=== PATIENT | male | born 1980 | race Caucasian/White ===

== ENCOUNTER 2018-02-13 14:23 | Emergency (ER) | payer OTHER, MEDICAID ==
--- NOTE | 2018-02-13 14:30 | ER Report ---
History and Physical Time Seen By MD: 14:29 HPI/ROS CHIEF COMPLAINT: Back pain, right hip pain HISTORY OF PRESENT ILLNESS: 37-year-old male patient presents to the emergency room via private vehicle. Patient states that he has been having back pain, neck pain and right hip pain since yesterday. Patient states that he was working at [employer] and was cleaning out the gutters when he missed a step and fell from a ladder. He states that he fell proximally 7 feet. Patient states since then he's been having significant amounts of back pain. He denies having any loss of bowel or bladder control. Patient states that he is felt like he's had a bowel movement, however he is going to the bathroom without any difficulties. Patient states the pain is just, unbearable. Patient states that the pain is right in the middle lower part of his back, as well as the right side of his neck. Patient states he feels like the pain radiates down his right leg. He has taken Tylenol and ibuprofen for this with no improvement. Patient denies having any neurological difficulties with the lower extremities. REVIEW OF SYSTEMS: Respiratory: No cough, no dyspnea. Cardiovascular: No chest pain, no palpitations. Gastrointestinal: No vomiting, no abdominal pain. Musculoskeletal: As noted above Allergies: Coded Allergies: Penicillins (Verified Allergy, Unknown, 02/13/18) Home Meds Active Scripts Hydrocodone Bit/Acetaminophen (HYDROCODON-ACETAMINOPHEN 5-325) 1 Each Tablet, 1 EACH PO Q4-6H Y for PAIN, #12 TAB Prov:JELENA SZYMANSKI LEO 02/13/18 Past Medical/Surgical History Patient has a past medical history of kidney stones, left foot fracture. Patient has surgical history of left foot surgery. Reviewed Nurses Notes: Yes Constitutional Vital Sign - Last 24 Hours 02/13/18 02/13/18 02/13/18 02/13/18 14:31 15:00 15:30 15:56 Temp 98.3 Pulse 78 87 94 Resp 24 16 18 24 B/P (MAP) 106/92 122/79 (93) 120/87 (98) 106/92 Pulse Ox 95 95 93 95 O2 Delivery Room Air Room Air Room Air 02/13/18 16:00 Temp 98.0 Pulse 88 Resp 16 B/P (MAP) 130/88 (102) Pulse Ox 96 Physical Exam General Appearance: The patient is alert, has no immediate need for airway protection and no current signs of toxicity. ENT: Tympanic membranes are pearly-scott, auditory canals are patent, mucous membranes are moist. Respiratory: Chest is non tender, lungs are clear to auscultation. Cardiac: regular rate and rhythm Gastrointestinal: Abdomen is soft and non tender, no masses, bowel sounds normal. Musculoskeletal: Neck: Neck is supple and non tender. Back: Patient has tenderness to the lumbar spine, no bruising. Extremities have full range of motion and are non tender. Skin: No rashes or lesions. DIFFERENTIAL DIAGNOSIS: After history and physical exam differential diagnosis was considered for fracture, contusion, strain. Medical Decision Making Data Points Result Diagram: 02/13/18 1440 02/13/18 1440 Laboratory Hematology Test 02/13/18 14:40 02/13/18 15:15 Red Blood Count 6.08 M/uL (4.00-5.60) Mean Corpuscular Volume 89.9 fL (80.0-96.0) Mean Corpuscular Hemoglobin 31.1 pg (26.0-33.0) Mean Corpuscular Hemoglobin Concent 34.6 g/dL (32.0-36.0) Red Cell Distribution Width 13.4 % (11.5-14.5) Mean Platelet Volume 6.4 fL (7.2-11.1) Neutrophils (%) (Auto) 76.4 % (39.4-72.5) Lymphocytes (%) (Auto) 17.1 % (17.6-49.6) Monocytes (%) (Auto) 5.4 % (4.1-12.4) Eosinophils (%) (Auto) 0.8 % (0.4-6.7) Basophils (%) (Auto) 0.3 % (0.3-1.4) Nucleated RBC Relative Count (auto) 0.0 /100WBC Neutrophils # (Auto) 7.5 K/uL (2.0-7.4) Lymphocytes # (Auto) 1.7 K/uL (1.3-3.6) Monocytes # (Auto) 0.5 K/uL (0.3-1.0) Eosinophils # (Auto) 0.1 K/uL (0.0-0.5) Basophils # (Auto) 0.0 K/uL (0.0-0.1) Nucleated RBC Absolute Count (auto) 0.00 K/uL Sodium Level 142 mmol/L (137-145) Potassium Level 3.9 mmol/L (3.5-5.0) Chloride Level 104 mmol/L (98-107) Carbon Dioxide Level 23 mmol/L (22-30) Blood Urea Nitrogen 7 mg/dl (9-21) Creatinine 0.80 mg/dl (0.66-1.25) Glomerular Filtration Rate Calc > 60.0 Random Glucose 122 mg/dl (75-110) Calcium Level 9.9 mg/dl (8.4-10.2) Total Bilirubin 1.8 mg/dl (0.2-1.3) Aspartate Amino Transf (AST/SGOT) 31 U/L (0-35) Alanine Aminotransferase (ALT/SGPT) 28 U/L (0-56) Alkaline Phosphatase 63 U/L (0-126) Total Protein 7.9 gm/dl (6.3-8.2) Albumin 4.7 g/dl (3.5-5.0) Urine Color Yellow Urine Clarity Clear Urine pH 7.0 pH (4.8-9.5) Urine Specific Fork 1.005 Urine Protein Negative mg/dL (NEGATIVE) Urine Glucose (UA) Negative mg/dL (NEGATIVE) Urine Ketones Negative mg/dL (NEGATIVE) Urine Blood Negative (NEGATIVE) Urine Nitrite Negative (NEGATIVE) Urine Bilirubin Negative (NEGATIVE) Urine Urobilinogen Negative mg/dL (0.2-1.9) Urine Leukocyte Esterase Negative (NEGATIVE) Urine RBC <1 /HPF (0-2/HPF) Urine WBC None /HPF (0-5/HPF) Urine Squamous Epithelial Cells None /LPF (</=FEW) Urine Bacteria Few /HPF (NONE-FEW) Urine Mucus None /HPF (NONE-FEW) Chemistry Test 02/13/18 14:40 02/13/18 15:15 White Blood Count 9.9 k/uL (4.5-11.0) Red Blood Count 6.08 M/uL (4.00-5.60) Hemoglobin 18.9 g/dL (14.0-18.0) Hematocrit 54.6 % (42.0-52.0) Mean Corpuscular Volume 89.9 fL (80.0-96.0) Mean Corpuscular Hemoglobin 31.1 pg (26.0-33.0) Mean Corpuscular Hemoglobin Concent 34.6 g/dL (32.0-36.0) Red Cell Distribution Width 13.4 % (11.5-14.5) Platelet Count 328 K/uL (150-450) Mean Platelet Volume 6.4 fL (7.2-11.1) Neutrophils (%) (Auto) 76.4 % (39.4-72.5) Lymphocytes (%) (Auto) 17.1 % (17.6-49.6) Monocytes (%) (Auto) 5.4 % (4.1-12.4) Eosinophils (%) (Auto) 0.8 % (0.4-6.7) Basophils (%) (Auto) 0.3 % (0.3-1.4) Nucleated RBC Relative Count (auto) 0.0 /100WBC Neutrophils # (Auto) 7.5 K/uL (2.0-7.4) Lymphocytes # (Auto) 1.7 K/uL (1.3-3.6) Monocytes # (Auto) 0.5 K/uL (0.3-1.0) Eosinophils # (Auto) 0.1 K/uL (0.0-0.5) Basophils # (Auto) 0.0 K/uL (0.0-0.1) Nucleated RBC Absolute Count (auto) 0.00 K/uL Glomerular Filtration Rate Calc > 60.0 Calcium Level 9.9 mg/dl (8.4-10.2) Total Bilirubin 1.8 mg/dl (0.2-1.3) Aspartate Amino Transf (AST/SGOT) 31 U/L (0-35) Alanine Aminotransferase (ALT/SGPT) 28 U/L (0-56) Alkaline Phosphatase 63 U/L (0-126) Total Protein 7.9 gm/dl (6.3-8.2) Albumin 4.7 g/dl (3.5-5.0) Urine Color Yellow Urine Clarity Clear Urine pH 7.0 pH (4.8-9.5) Urine Specific Fork 1.005 Urine Protein Negative mg/dL (NEGATIVE) Urine Glucose (UA) Negative mg/dL (NEGATIVE) Urine Ketones Negative mg/dL (NEGATIVE) Urine Blood Negative (NEGATIVE) Urine Nitrite Negative (NEGATIVE) Urine Bilirubin Negative (NEGATIVE) Urine Urobilinogen Negative mg/dL (0.2-1.9) Urine Leukocyte Esterase Negative (NEGATIVE) Urine RBC <1 /HPF (0-2/HPF) Urine WBC None /HPF (0-5/HPF) Urine Squamous Epithelial Cells None /LPF (</=FEW) Urine Bacteria Few /HPF (NONE-FEW) Urine Mucus None /HPF (NONE-FEW) Urinalysis Test 02/13/18 15:15 Urine Color Yellow Urine Clarity Clear Urine pH 7.0 pH (4.8-9.5) Urine Specific Fork 1.005 Urine Protein Negative mg/dL (NEGATIVE) Urine Glucose (UA) Negative mg/dL (NEGATIVE) Urine Ketones Negative mg/dL (NEGATIVE) Urine Blood Negative (NEGATIVE) Urine Nitrite Negative (NEGATIVE) Urine Bilirubin Negative (NEGATIVE) Urine Urobilinogen Negative mg/dL (0.2-1.9) Urine Leukocyte Esterase Negative (NEGATIVE) Urine RBC <1 /HPF (0-2/HPF) Urine WBC None /HPF (0-5/HPF) Urine Squamous Epithelial Cells None /LPF (</=FEW) Urine Bacteria Few /HPF (NONE-FEW) Urine Mucus None /HPF (NONE-FEW) EKG/Imaging Imaging C-SPINE W/O CONTRAST History: fall from ladder COMPARISON STUDIES: none TECHNIQUE: Contiguous axial images were obtained from the skull base through the upper thoracic spine without IV contrast administration. Coronal and sagittal reformatted images were obtained from the axial source data. One of the following dose optimization techniques was utilized in the performance of this exam: Automated exposure control; adjustment of the mA and/or kV according to the patient's size; or use of an iterative reconstruction technique. Specific details can be referenced in the facility's radiology CT exam operational policy. FINDINGS: Alignment: Cervical spine is aligned. No evidence of subluxation. Vertebral bodies: Osseous structures intact. No evidence of fracture. Discs: Negative. Disc space height well-maintained. Para-vertebral soft tissues: negative Visualized lung / mediastinum: Visualized lung parenchyma normal. No evidence of pneumothorax. Additional findings: There is a small air-fluid level seen in the left sphenoid sinus. I see no evidence, however, of an underlying basilar skull fracture. IMPRESSION: Normal cervical spine. Small air-fluid level left sphenoid sinus. This is almost certainly an incidental finding unrelated to trauma as I see no evidence of basilar skull fracture. Report Dictated By: Stanislav Courtney MD at 02/13/2018 3:43 PM Report E-Signed By: Stanislav Courtney MD at 02/13/2018 3:48 PM HIP RIGHT HISTORY: fall from ladder Additional history: None COMPARISON: None. FINDINGS: Two views. Pelvic girdle and hips are intact. There is no evidence of fracture or appreciable osteoarthritic changes in the hip joints. IMPRESSION: Negative exam Report Dictated By: Stanislav Courtney MD at 02/13/2018 3:36 PM Report E-Signed By: Stanislav Courtney MD at 02/13/2018 3:41 PM L-SPINE W/O CONTRAST History: fall from ladder COMPARISON STUDIES: none TECHNIQUE: Contiguous axial images were obtained through the lumbar spine without IV contrast administration. Coronal and sagittal reformatted images were obtained from the axial source data. One of the following dose optimization techniques was utilized in the performance of this exam: Automated exposure control; adjustment of the mA and/or kV according to the patient's size ; or use of an iterative reconstruction technique. Specific details can be referenced in the facility's radiology CT exam operational policy. FINDINGS: Alignment: Lumbar spine is aligned. No evidence of subluxation. Vertebral bodies: Osseous structures intact. No evidence of fracture. Discs: Negative. Disc space height well-maintained. Para-vertebral soft tissues: negative Visualized abdominal viscera: Visualized abdominal viscera normal. IMPRESSION: Negative exam. No evidence of acute trauma. Report Dictated By: Stanislav Courtney MD at 02/13/2018 4:06 PM Report E-Signed By: Stanislav Courtney MD at 02/13/2018 4:10 PM T-SPINE W/O CONTRAST History: fall from ladder COMPARISON STUDIES: none TECHNIQUE: Contiguous axial images were obtained through the thoracic spine without IV contrast administration. Coronal and sagittal reformatted images were obtained from the axial source data. One of the following dose optimization techniques was utilized in the performance of this exam: Automated exposure control; adjustment of the mA and/or kV according to the patient's size ; or use of an iterative reconstruction technique. Specific details can be referenced in the facility's radiology CT exam operational policy. FINDINGS: Alignment: Thoracic spine is aligned. No evidence of subluxation. Vertebral bodies: Osseous structures intact. No evidence of fracture. Discs: Negative. Disc space height well-maintained. Para-vertebral soft tissues: negative Visualized lung abdominal viscera: Visualized lung parenchyma normal and abdominal viscera are normal. No evidence of pneumothorax. IMPRESSION: Normal study. No evidence of acute trauma. Report Dictated By: Stanislav Courtney MD at 02/13/2018 4:02 PM Report E-Signed By: Stanislav Courtney MD at 02/13/2018 4:06 PM ED Course/Re-evaluation ED Course Patient was admitted to exam room, history and physical were obtained. Differential diagnoses were considered. On examination patient had significant amounts of tenderness to the low back, wasn't obvious amounts of pain. An IV was started, CBC, CMP were obtained. The lab results were unremarkable. Patient received a dose of IV Dilaudid, 1 mg. Patient then had a CT scan of the cervical spine, thoracic spine, lumbar spine as well as an x-ray of the right hip. The imaging results were negative. After he returned from a CT scan is complaining more pain received another dose of Dilaudid. I discussed findings with the patient. Patient appears to have some bruising to the musculature of the back. The patient will be discharged home with a limited supply of pain medication. He is to ice his back for the next couple days and then alternate ice and heat after that. He is follow-up with his primary care provider in the next week. He is return to emergency room if condition worsens. Patient verbalized understanding and agreement with plan. Decision to Disposition Date: Feb 13, 2018 Decision to Disposition Time: 16:14 Depart Departure Latest Vital Signs Vital Signs Date Time Temp Pulse Resp B/P (MAP) Pulse Ox O2 Delivery O2 Flow Rate FiO2 02/13/18 16:00 98.0 88 16 130/88 (102) 96 02/13/18 15:56 Room Air Impression: Primary Impression: Back pain Additional Impression: Fall Condition: Improved Disposition: HOME OR SELF-CARE New Scripts Hydrocodone Bit/Acetaminophen (HYDROCODON-ACETAMINOPHEN 5-325) 1 Each Tablet 1 EACH PO Q4-6H Y for PAIN, #12 TAB Prov: JELENA SZYMANSKI LEO 02/13/18 Patient Instructions: Back Pain (ED) Additional Instructions: Limit activity by pain. Get plenty of rest. Follow up with your primary care provider in the next 3-5 days. Ice the back 2-3 times a day for the next 2-3 days and then alternate ice and heat. Increase low impact aerobic activity. Return to the ER if condition worsens. Problem Qualifiers Primary Impression: Back pain Back pain location: low back pain Chronicity: acute Back pain laterality: bilateral Sciatica presence: with sciatica Sciatica laterality: sciatica of right side Qualified Codes: M54.41 - Lumbago with sciatica, right side Additional Impression: Fall Encounter type: initial encounter Qualified Codes: W19.XXXA - Unspecified fall, initial encounter JELENA SZYMANSKI Feb 13, 2018 14:30
[2018-02-13] MEDS ORDERED: HYDROmorphone* 1 MG/ML 1 MG/ML ML IVP ONE ×2 (14:35→15:50)
[2018-02-13] MEDS ORDERED: DIPHTH/TETANUS/ACEL. PERTUSSIS IM ONLY ONE (14:50)
[2018-02-13 15:02] LABS: PLATELET COUNT, AUTOMATED 328 K/uL (150-450)
--- NOTE | 2018-02-13 15:45 | RADIOLOGY IMAGING REPORT ---
FAC[place] [facility] [place]IENT NAME: Félix Zapata : 1980 MR: [id number] V: [id number] EXAM DATE: ORDERING PHYSICIAN: JELENA SZYMANSKI TECHNOLOGIST: Location: [facility] - [place] Patient: Félix Zapata : 1980 Visit/Account:[id number] Date of Sevice: 02/13/2018 HIP RIGHT HISTORY: fall from ladder Additional history: None COMPARISON: None. FINDINGS: Two views. Pelvic girdle and hips are intact. There is no evidence of fracture or appreciable osteo arthritic changes in the hip joints. IMPRESSION: Negative exam Report Dictated By: Stanislav Courtney MD at 02/13/2018 3:36 PM Report E-Signed By: Stanislav Courtney MD at 02/13/2018 3:41 PM WSN:VINNIE
--- NOTE | 2018-02-13 15:53 | RADIOLOGY IMAGING REPORT ---
FACILITY: [facility] PATIENT NAME: Félix Zapata : 1980 MR: [id number] V: [id number] EXAM DATE: ORDERING PHYSICIAN: JELENA SZYMANSKI TECHNOLOGIST: [place] [facility] [place]: Félix Zapata : 1980 Visit/Account:[id number] Date of Sevice: 02/13/2018 C-SPINE W/O CONTRAST History: fall from ladder COMPARISON STUDIES: none TECHNIQUE: Contiguous axial images were obtained from the skull base through the upper thoracic spin e without IV contrast administration. Coronal and sagittal reformatted images were obtained from the axial source data. One of the following dose optimization techniques was utilized in the performance of this exam: Automated exposure control; adjustment of the mA and/or kV according to the patient's s ize; or use of an iterative reconstruction technique. Specific details can be referenced in the [facility]'s radiology CT exam operational policy. FINDINGS: Alignment: Cervical spine is aligned. No evidence of subluxation. Vertebral bodies: Osseous structures intact. No evidence of fracture. Discs: Negative. Disc space height well-maintained. Para-vertebral soft tissues: negative Visualized lung / mediastinum: Visualized lung parenchyma normal. No evidence of pneumothorax. Additional findings: There is a small air-fluid level seen in the left sphenoid sinus. I see no evid ence, however, of an underlying basilar skull fracture. IMPRESSION: Normal cervical spine. Small air-fluid level left sphenoid sinus. This is almost certainly an incidental finding unrelated to trauma as I see no evidence of basilar skull fracture. Report Dictated By: Stanislav Courtney MD at 02/13/2018 3:43 PM Report E-Signed By: Stanislav Courtney MD at 02/13/2018 3:48 PM WSN:[email or web address]
[2018-02-13 16:00] VITALS: BP 130/88
--- NOTE | 2018-02-13 16:09 | RADIOLOGY IMAGING REPORT ---
FACILITY: [facility] PATIENT NAME: Félix Zapata : 1980 MR: [id number] V: [id number] EXAM DATE: ORDERING PHYSICIAN: JELENA SZYMANSKI TECHNOLOGIST: Location: [facility] Patient: Félix Zapata : 1980 Visit/Account:[id number] Date of Sevice: 02/13/2018 T-SPINE W/O CONTRAST History: fall from ladder COMPARISON STUDIES: none TECHNIQUE: Contiguous axial images were obtained through the thoracic spine without IV contrast admi nistration. Coronal and sagittal reformatted images were obtained from the axial source data. One of the following dose optimization techniques was utilized in the performance of this exam: Automated ex posure control; adjustment of the mA and/or kV according to the patient's size; or use of an iterativ e reconstruction technique. Specific details can be referenced in the facility's radiology CT exam operational policy. FINDINGS: Alignment: Thoracic spine is aligned. No evidence of subluxation. Vertebral bodies: Osseous structures intact. No evidence of fracture. Discs: Negative. Disc space height well-maintained. Para-vertebral soft tissues: negative Visualized lung abdominal viscera: Visualized lung parenchyma normal and abdominal viscera are darius l. No evidence of pneumothorax. IMPRESSION: Normal study. No evidence of acute trauma. Report Dictated By: Stanislav Courtney MD at 02/13/2018 4:02 PM Report E-Signed By: Stanislav Courtney MD at 02/13/2018 4:06 PM WSN:VINNIE
--- NOTE | 2018-02-13 16:13 | RADIOLOGY IMAGING REPORT ---
FACILITY: [facility] PATIENT NAME: Félix Zapata : 1980 MR: [id number] V: [id number] EXAM DATE: ORDERING PHYSICIAN: JELENA SZYMANSKI TECHNOLOGIST: Location: Patient: Félix Zapata : 1980 Visit/Account:[id number] Date of Sevice: 02/13/2018 L-SPINE W/O CONTRAST History: fall from ladder COMPARISON STUDIES: none TECHNIQUE: Contiguous axial images were obtained through the lumbar spine without IV contrast admini stration. Coronal and sagittal reformatted images were obtained from the axial source data. One of th e following dose optimization techniques was utilized in the performance of this exam: Automated expo sure control; adjustment of the mA and/or kV according to the patient's size; or use of an iterative reconstruction technique. Specific details can be referenced in the facility's radiology CT exam op erational policy. FINDINGS: Alignment: Lumbar spine is aligned. No evidence of subluxation. Vertebral bodies: Osseous structures intact. No evidence of fracture. Discs: Negative. Disc space height well-maintained. Para-vertebral soft tissues: negative Visualized abdominal viscera: Visualized abdominal viscera normal. IMPRESSION: Negative exam. No evidence of acute trauma. Report Dictated By: Stanislav Courtney MD at 02/13/2018 4:06 PM Report E-Signed By: Stanislav Courtney MD at 02/13/2018 4:10 PM WSN:[email or web address]
[2018-02-13] MEDS ORDERED: HYDR-385 PO (16:17)
== END 2018-02-13 16:25 | disposition home or self-care (01) ==
LOC: ER 14:33
DX: M54.41 Lumbago with sciatica, right side (principal); W11.XXXA Fall on and from ladder, initial encounter; Y99.0 Civilian activity done for income or pay
CPT/HCPCS: 72125; 72128; 72131; 73502; 81001; 85025; 90471; 90715; 96374; 96376; 99284; J1170; L0172; 82040; 82247; 82310; 82374; 82435; 82565; 82947; 84075; 84132; 84155; 84295; 84450; 84460; 84520